=== PATIENT | female | born 1965 | race Caucasian/White ===

== ENCOUNTER 2020-06-12 00:18 | Inpatient (IN) | payer BC ==
[2020-06-12] MEDS ORDERED: HYDROmorphone 0.5 MG/0.5 ML SYRINGE IVP STA (00:42)
--- NOTE | 2020-06-12 01:28 | XR ---
EXAM: XR Right Hip With Pelvis When Performed, 2 or 3 Views CLINICAL HISTORY: ITS.REASON XR Reason: Fall/injury TECHNIQUE: Two or three views of the right hip with pelvis when performed. COMPARISON: No relevant prior studies available. FINDINGS: Bones/joints: Acute traumatic impacted subcapital fracture of the right femoral neck without significant displacement. An additional incomplete fracture line is identified extending through the medial cortex of the mid femoral neck. No joint dislocation. Sacroiliac joints, hip joints, and pubic symphysis are normally aligned. Soft tissues: Unremarkable. IMPRESSION: Acute impacted subcapital fracture of the right femoral neck. No dislocation.
--- NOTE | 2020-06-12 01:42 | ED ---
General Adult HPI - General Chief complaint: Fall Stated complaint: Fall Time Seen by Provider: 06/12/20 00:36 Source: EMS Mode of arrival: EMS Limitations: no limitations - History of Present Illness Initial comments: 54-year-old female patient presents to the emergency department today for evaluation of right hip pain after a fall. Patient states around 8:00 this evening she went to go upstairs and a carotid when she tripped and fell landing on the right side. Patient states she had significant discomfort to the right hip and was unable to bear weight or walk. Patient states the pain radiates down her leg to about mid thigh. She denies numbness or tingling in the toes or feet. She denies hitting her head or losing consciousness with the fall. Denies any other injuries. Denies previous injury to this hip. Patient denies any headache, neck pain, back pain, chest pain, shortness of breath, dizziness, weakness, abdominal pain, nausea, vomiting, or difficulties with bowel movements or urination. - Related Data Allergies Allergy/AdvReac Type Severity Reaction Status Date / Time No Known Allergies Allergy Verified 06/12/20 00:22 Review of Systems ROS Statement: Those systems with pertinent positive or pertinent negative responses have been documented in the HPI. ROS Other: All systems not noted in ROS Statement are negative. Past Medical History Past Medical History: No Reported History History of Any Multi-Drug Resistant Organisms: None Reported Past Surgical History: No Surgical Hx Reported Smoking Status: Current every day smoker Past Alcohol Use History: None Reported Past Drug Use History: None Reported General Exam Limitations: no limitations General appearance: alert, in no apparent distress, other (This is a well- developed, well-nourished adult female patient in no acute distress. Vital signs upon presentation are temperature 99.2F, pulse 84, respirations 17, blood pressure 128/81, pulse ox 96% on room air.) Head exam: Present: atraumatic, normocephalic, normal inspection Eye exam: Present: normal appearance, PERRL, EOMI. Absent: scleral icterus, conjunctival injection, periorbital swelling ENT exam: Present: normal exam, normal oropharynx, mucous membranes moist Neck exam: Present: normal inspection, full ROM, other (Nontender, no step-off, no deformity to firm midline palpation of the posterior cervical spine. Full range of motion without pain or limitation.). Absent: tenderness, meningismus, lymphadenopathy Respiratory exam: Present: normal lung sounds bilaterally. Absent: respiratory distress, wheezes, rales, rhonchi, stridor Cardiovascular Exam: Present: regular rate, normal rhythm, normal heart sounds. Absent: systolic murmur, diastolic murmur, rubs, gallop, clicks GI/Abdominal exam: Present: soft, normal bowel sounds. Absent: distended, tenderness, guarding, rebound, rigid Extremities exam: Present: normal inspection, full ROM, normal capillary refill, other (Skin to the right lower extremity is pink, warm, dry. Cap refills less than 3 seconds. Pedal and posttibial pulses are 2+ and equal bilaterally. There is no shortening or rotation of the right leg.). Absent: tenderness, pedal edema, joint swelling, calf tenderness Back exam: Present: normal inspection, other (Nontender, no step-off, no defo rmity to firm midline palpation of the thoracic and lumbar vertebrae. Full range of motion without pain or limitation.). Absent: vertebral tenderness Neurological exam: Present: alert, oriented X3, CN II-XII intact Psychiatric exam: Present: normal affect, normal mood Skin exam: Present: warm, dry, intact, normal color. Absent: rash Course Vital Signs 06/12/20 00:19 Temperature 99.2 F Pulse Rate 84 Respiratory 17 Rate Blood Pressure 128/81 O2 Sat by Pulse 96 Oximetry Medical Decision Making - Medical Decision Making 54 year-old female patient presented to the emergency department today for evaluation of right hip pain after experiencing a fall. Physical examination did reveal good neurovascular status to the right lower extremity. No shortening or rotation of the leg. X-ray was obtained and did show evidence for impacted subcapital fracture of the right femoral neck. No dislocation noted. Labs will be obtained. Patient will be admitted to orthopedics. - Lab Data Result diagrams: 06/12/20 02:00 Lab Results 06/12/20 Range/Units 02:00 WBC 12.0 H (3.8-10.6) k/uL RBC 4.13 (3.80-5.40) m/uL Hgb 13.5 (11.4-16.0) gm/dL Hct 39.7 (34.0-46.0) % MCV 96.1 (80.0-100.0) fL MCH 32.8 (25.0-35.0) pg MCHC 34.1 (31.0-37.0) g/dL RDW 12.4 (11.5-15.5) % Plt Count 285 (150-450) k/uL MPV 6.8 Neutrophils % 73 % Lymphocytes % 19 % Monocytes % 4 % Eosinophils % 2 % Basophils % 1 % Neutrophils # 8.8 H (1.3-7.7) k/uL Lymphocytes # 2.3 (1.0-4.8) k/uL Monocytes # 0.5 (0-1.0) k/uL Eosinophils # 0.2 (0-0.7) k/uL Basophils # 0.1 (0-0.2) k/uL - Radiology Data Radiology results: report reviewed, image reviewed X-rays of the right hip and pelvis were obtained. Report was reviewed in its entirety. Impression by Dr. Simms shows acute impacted subcapital fracture of the right femoral neck. No dislocation. Disposition Clinical Impression: Closed right hip fracture Disposition: ADMITTED IP TO THIS [facility] Condition: Serious Referrals: Ronaldo Ann MD [Primary Care Provider] - 1-2 days Decision to Admit Reason: Admit from EC Decision Date: 06/12/20 Decision Time: 02:37
[2020-06-12] MEDS ORDERED: HYDROmorphone 1 MG/ML 1 ML SYRINGE IVP STA (02:26)
[2020-06-12 02:27] LABS: Basophils # (A) 0.1 k/uL (0-0.2); Basophils % (A) 1 %; Eosinophils # (A) 0.2 k/uL (0-0.7); Eosinophils % (A) 2 %; HCT 39.7 % (34.0-46.0); HGB 13.5 gm/dL (11.4-16.0); Lymphocytes # (A) 2.3 k/uL (1.0-4.8); Lymphocytes % (A) 19 %; MCH 32.8 pg (25.0-35.0); MCHC 34.1 g/dL (31.0-37.0); MCV 96.1 fL (80.0-100.0); Mean Platelet Volume 6.8; Monocytes # (A) 0.5 k/uL (0-1.0); Monocytes % (A) 4 %; Neutrophils # (A) 8.8 k/uL (1.3-7.7); Neutrophils % (A) 73 %; Platelet Count 285 k/uL (150-450); RBC 4.13 m/uL (3.80-5.40); RDW 12.4 % (11.5-15.5)
[2020-06-12 02:35] LABS: INR 0.9 (<1.2); Partial Thromboplastin Time 25.1 sec (22.0-30.0); Prothrombin Time 9.6 sec (9.0-12.0)
[2020-06-12] MEDS ORDERED: NALOXONE 0.4 MG/ML 1 ML VIAL IV PRN (02:36)
[2020-06-12] MEDS ORDERED: ONDANSETRON 4 MG/2 ML VIAL IVP PRN ×2 (02:36→12:23)
[2020-06-12 02:42] LABS: Albumin 4.5 g/dL (3.5-5.0); Calcium 9.1 mg/dL (8.4-10.2); Potassium 4.2 mmol/L (3.5-5.1); Total Bilirubin 0.4 mg/dL (0.2-1.3); Total Protein 7.3 g/dL (6.3-8.2)
[2020-06-12] MEDS: SODIUM CHLORIDE 0.9% 1,000 ML IV SCH (03:08)
[2020-06-12] MEDS: HYDROmorphone 1 MG/ML 1 ML SYRINGE IVP PRN ×4 (04:58→22:59)
--- NOTE | 2020-06-12 08:52 | P.HPOR ---
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 She was unable to bear weight after the injury. She denies previous problems. She had no loss of consciousness. Review of Systems Unremarkable Past Medical History Past Medical History: No Reported History History of Any Multi-Drug Resistant Organisms: None Reported Past Surgical History: Tubal Ligation Smoking Status: Current some day smoker (1/2-1 pack per day) Past Alcohol Use History: None Reported Past Drug Use History: None Reported Medications and Allergies Allergies Allergy/AdvReac Type Severity Reaction Status Date / Time No Known Allergies Allergy Verified 06/12/20 00:22 Physical Examination - Hip right Gait: other (Nonweightbearing) Tenderness with palpation: anterior Pain with motion: other (Pain with logroll/any motion right hip) ROM: extension: 0 degrees ROM: flexion: 30 degrees ROM: abduction: 10 degrees ROM: adduction: 10 degrees ROM: internal rotation: 0 degrees ROM: external rotation: 30 degrees Results Alert and oriented 4 Nontender cervicothoracic and lumbar spine Pelvis stable to external rotation stress Nontender bilateral upper extremities Limited range of motion right hip secondary to pain No pain with logroll left hip Nontender bilateral knees and ankles and feet Distal neurovascular intact bilateral lower extremities Mild shortening right lower extremity - Labs Labs: Abnormal Lab Results - Last 24 Hours (Table) 06/12/20 06/12/20 Range/Units 02:00 02:00 WBC 12.0 H (3.8-10.6) k/uL Neutrophils # 8.8 H (1.3-7.7) k/uL Chloride 109 H (98-107) mmol/L H & H 06/12/20 Range/Units 02:00 Hgb 13.5 (11.4-16.0) gm/dL Hct 39.7 (34.0-46.0) % Coagulation 06/12/20 Range/Units 01:58 INR 0.9 (<1.2) Result Diagrams: 06/12/20 02:00 06/12/20 02:00 - Diagnostic results Hip x-ray: image reviewed (Valgus impacted right subcapital femoral neck fracture) Assessment and Plan Assessment: Acute right subcapital femoral neck fracture History of tobacco use Plan: I talked to the patient length regarding her condition along with treatment options. She opted to proceed with surgery. Operative options to include open reduction and pinning versus total hip arthroplasty were discussed. She opted to proceed with total hip arthroplasty. Risks and benefits were discussed at length in layman's terms. Time with Patient: Greater than 30
[2020-06-12] MEDS ORDERED: PROPOFOL 10 MG/ML 20 ML VIAL IV ONE (10:34)
[2020-06-12] MEDS ORDERED: LIDOCAINE 1% INJ 10MG/ML (20 ML MDV) ONE (10:34)
[2020-06-12] MEDS ORDERED: ONDANSETRON 4 MG/2 ML VIAL ONE (10:34)
[2020-06-12] MEDS ORDERED: DEXAMETHASONE SOD PHOSPHATE 10 MG/ML 1 ML VIAL ONE (10:34)
[2020-06-12] MEDS ORDERED: SUCCINYLCHOLINE CHLORIDE 100 MG/5 ML SYR IV ONE (10:34)
[2020-06-12] MEDS ORDERED: MIDAZOLAM 2 MG/2 ML VIAL ONE (10:34)
[2020-06-12] MEDS ORDERED: fentaNYL (PF) 50 MCG/ML 2 ML AMP ONE (10:34)
[2020-06-12] MEDS ORDERED: KETAMINE 10 MG/ML 20 ML VIAL ONE (10:34)
[2020-06-12] MEDS ORDERED: SODIUM CHLORIDE 0.9% 1,000 ML IV ONE (10:34)
[2020-06-12] MEDS ORDERED: SODIUM CHLORIDE 0.9% 50 ML with ceFAZolin 1,000 MG IV ONE ×2 (10:45)
[2020-06-12] MEDS ORDERED: ceFAZolin 3,000 MG in SODIUM CHLORIDE 0.9% IRRIGATIO 3,000 ML IRRIGATION ONE (11:02)
[2020-06-12] MEDS ORDERED: LACTATED RINGERS 1,000 ML IV ONE ×2 (12:02)
[2020-06-12] MEDS ORDERED: ACETAMINOPHEN TAB 325 MG TAB PO PRN (12:23)
[2020-06-12] MEDS ORDERED: MAGNESIUM HYDROXIDE 2,400 MG/10 ML CUP PO PRN (12:23)
[2020-06-12] MEDS ORDERED: traMADol 50 MG TAB PO PRN (12:23)
[2020-06-12] MEDS ORDERED: HYDROcodone/APAP 7.5-325MG 1 EACH TAB PO PRN (12:23)
--- NOTE | 2020-06-12 12:50 | P.OP ---
Date of Procedure: 06/12/20 Preoperative Diagnosis: Impacted right subcapital femoral neck fracture Postoperative Diagnosis: Same Procedure(s) Performed: Right total hip arthroplastypress-fitlateral approach Implants: Depuy Corail size 11 collared standard femoral stempress-fit, 32+5 cobalt chrome femoral head, 52 mm Corona acetabular shell with neutral polyethylene liner. Anesthesia: GETA, spinal Surgeon: Neri Sanchez [employer] Coordinator #1: Milton Shore Estimated Blood Loss (ml): 100 Pathology: other (Femoral head) Condition: stable Disposition: PACU Indications for Procedure: The patient's a 54-year-old female who presents after falling in her garage yesterday sustaining an impacted right subcapital femoral neck fracture. A discussion of the risks and benefits of operative intervention was made with patient. She opted to proceed with surgery. Operative options were discussed to include open reduction with pinning versus hemiarthroplasty versus total hip arthroplasty. She opted to proceed with total hip arthroplasty. Specific risks of the surgery to include infection, neurovascular injury, development of blood clots, possible fracture, possible leg length discrepancy, possible instability and need for subsequent procedures was discussed. Informed consent was obtained. Operative Findings: As below Description of Procedure: The patient was brought to the operating room, and after induction of spinal anesthesia was placed in a lateral decubitus position. The bony prominences were appropriately padded. The pelvis was stable perpendicular to the floor with a pegboard. The right lower extremity was prepped and draped in normal fashion. A 12 cm incision was then made centered over the greater trochanter extending superiorly to level the ASIS and distally in line with the femoral shaft. The skin and subcutaneous tissues were divided sharply. Electrocautery was used for hemostasis. The fascia ramona and gluteus tati fascia was split in line with the skin incision. The muscle fibers were bluntly dissected proximally. A self-retaining retractor was placed. The anterior and posterior margins of the gluteus medius muscles identified and the anterior two thirds was detached from the greater trochanter with electrocautery. The gluteus minimus tendon was identified and detached in a similar fashion. A wide capsulotomy was performed. The femoral neck fracture was identified in the lower neck cut was made approximately 1 1/2 cm above the level of the lesser trochanter with a sagittal saw at a 45 the shaft. The head was then extracted with a corkscrew. Attention was then paid towards preparing the acetabular. Anterior and posterior retractors were placed. The remaining capsular labral tissues debrided sharply clearly defining the acetabular margins. Began reaming with a 45 mm reamer taking care to initially medialize, then reaming at 45 of abduction and 20 of anteversion. Sequential reaming is performed up to 51 mm. This was down to bleeding bony surface. A trial 52 mm acetabular shell was inserted at 45 of abduction and 20 of anteversion. This was fully seated. There was good rim fit and stability. A neutral polyethylene liner was then impacted. Care taken to avoid any soft tissue interposition. Attention was then paid towards preparing the proximal femur. A box chisel was used to open the metaphyseal region. A canal finder was used to find the femoral canal. Sequential broaching was performed up to a size 11. This is placed in 15 of anteversion with the leg perpendicular floor judging off the trans-epicondylar axis. There is good rotational stability. A calcar mill was used to fashion the medial calcar. A trial standard neck along with a 32 mm + 5 trial head was placed. The hip was gently reduced. It was taken through range of motion. I felt to be stable in flexion and extension with internal and external rotation. I felt there was adequate methodist of soft tissue tension. The hip was gently dislocated. The trial components removed. Pulsatile lavage was utilized. The final size 11 standard collared femoral stem was inserted again with the leg perpendicular to the floor in 15 of anteversion. Again there was good rotational stability. A 32 mm + 5 cobalt chrome femoral head was gently impacted. The hip was gently reduced. Again it was taken through motion and felt to be stable in flexion and extension with internal and external rotation. Pulsatile lavage was again utilized. With the leg in abduction the gluteus minimus and medius tendons reattached to the greater trochanter with #2 Ethibond suture. There was minimal drainage therefore a deep drain was not placed. The fascia ramona and gluteus tati fascia was closed with #2 Ethibond suture. The subcutaneous tissues were reapproximated interrupted 2-0 Vicryl sutures. The skin was reapproximated with 3-0 subcuticular strata fix suture. Skin tape and adhesive was applied. A sterile dressing was applied. The patient was awoken from sedation and transferred to recovery room in good condition. Blood loss was estimated 100 mL. No complications were incurred. Sponge and needle counts were correct in the case. Héctor WOOD assisted during the major composes case to include exposure, implantation, and closure.
--- NOTE | 2020-06-12 13:03 | XR ---
EXAMINATION TYPE: XR Hip Limited RT DATE OF EXAM: 06/12/2020 CLINICAL HISTORY: Postoperative evaluation TECHNIQUE: Single portable view of the right hip was submitted. FINDINGS: Noted are changes of total hip arthroplasty with femoral and acetabular components appearin g well seated. Alignment is anatomic. Postsurgical soft tissue changes are evident. IMPRESSION: Satisfactory postoperative alignment
[2020-06-12] MEDS ORDERED: SENNOSIDES-DOCUSATE SODIUM 1 EACH TAB PO SCH (21:00)
[2020-06-13] MEDS: SODIUM CHLORIDE 0.9% 1,000 ML IV SCH (02:36)
[2020-06-13] MEDS: HYDROmorphone 1 MG/ML 1 ML SYRINGE IVP PRN ×3 (02:37→10:28)
[2020-06-13 06:22] LABS: Basophils % (A) 1 %; Eosinophils % (A) 0 %; HCT 34.3 % (34.0-46.0); HGB 11.7 gm/dL (11.4-16.0); Lymphocytes # (A) 1.5 k/uL (1.0-4.8); Lymphocytes % (A) 20 %; MCH 33.6 pg (25.0-35.0); MCHC 34.2 g/dL (31.0-37.0); MCV 98.1 fL (80.0-100.0); Mean Platelet Volume 7.3; Monocytes # (A) 0.5 k/uL (0-1.0); Monocytes % (A) 6 %; Neutrophils # (A) 5.3 k/uL (1.3-7.7); Neutrophils % (A) 70 %; Platelet Count 256 k/uL (150-450); RDW 12.3 % (11.5-15.5); WBC 7.5 k/uL (3.8-10.6)
[2020-06-13] MEDS ORDERED: ENOXAPARIN 40 MG/0.4 ML SYRINGE SQ SCH (09:00)
[2020-06-13] MEDS ORDERED: FAMOTIDINE 20 MG TAB PO SCH (09:00)
[2020-06-13 11:53] VITALS: BP 126/73; RESP 16; TEMP 98.3
--- NOTE | 2020-06-13 12:24 | P.PN ---
Subjective Progress Note Date: 06/13/20 Principal diagnosis: Status post right total hip arthroplasty Patient is evaluated today at bedside, she is resting comfortably. She's ambulating well with therapy, she is utilizing a walker. Her pain is well- controlled. She denies any headaches, lightheadedness, chest pain, shortness of breath, nausea or vomiting, fever or chills. Objective - Vital Signs Vital signs: Vital Signs Temp 98.3 F 06/13/20 11:10 Pulse 90 06/13/20 11:10 Resp 16 06/13/20 11:10 BP 126/73 06/13/20 11:10 Pulse Ox 98 06/13/20 11:10 Intake & Output 06/12/20 06/13/20 06/13/20 18:59 06:59 18:59 Intake Total 801 Output Total 100 Balance 701 Intake: IV 801 Output: Estimated Blood Loss 100 Other: Voiding Method Bedpan Toilet # Voids 3 2 - Exam Right lower extremity: Incision is clean, dry, and intact. The exofin fusion tape is in good condition. There is minimal soft tissue swelling and ecchymosis surrounding the medial and lateral aspects of the incision. Calf is soft, no tenderness with palpation. Plantar flexion, dorsiflexion, EHL, FHL are intact. Sensory exam to light touch throughout the extremity is intact, dorsal pedis pulses 2+. - Labs CBC & Chem 7: 06/13/20 05:39 06/12/20 02:00 Labs: Abnormal Lab Results - Last 24 Hours (Table) 06/13/20 Range/Units 05:39 RBC 3.50 L (3.80-5.40) m/uL Assessment and Plan Assessment: Status post right total hip arthroplasty Plan: Pain control, plan for discharge home on oral Esmond 7.5 mg/325 mg . DVT prophylaxis aspirin 81 mg twice a day at discharge, plan to use for 1 month Wound care instructions were discussed, icing and elevating techniques discussed Home health care after discharge Patient stable for discharge, plan for follow-up in 2 weeks Time with Patient: Less than 30
--- NOTE | 2020-06-13 12:29 | P.DS ---
Providers Date of admission: 06/12/20 02:43 Expected date of discharge: 06/13/20 Attending physician: Neri Sanchez Primary care physician: [facility] Hospital Course: Date of admission: 06/12/2020 Date of discharge: 06/13/2020 Admission diagnosis: Displaced right femoral neck fracture Discharge diagnosis: Status post right total hip arthroplasty Attending physician: Dr. Sanchez Surgical procedures: Right total hip arthroplasty Brief history: Patient is a 54-year-old female who was brought to [facility] on 06/12/2020 after sustaining an injury to her right hip. Patient was in her garage, she apparently tripped over the step and fell onto that side. She was unable to weight-bear, EMS to bring the patient to the hospital. Upon arrival to the hospital, imaging and lab tests were done, they demonstrated a right femoral neck fracture. Our orthopedic team was contacted, she was admitted under our care with plan for likely surgical intervention. She was scheduled for surgery on 06/13/[address] Sanchez. Hospital course: Details of patient's surgery can be found in operative report. Patient tolerated the procedure well and was subsequently transported to orthopedic floor. Patient's orthopeidc and medical care was provided daily. Patient had daily laboratory tests performed for evaluation of overall blood counts. Patient had daily physical therapy to include strengthening range of motion as well as education with walker ambulation. Patient was treated with Lovenox for their postoperative DVT prophylaxis during their inpatient stay. Patient was noted to have a relatively uneventful postoperative course. Patient reported satisfactory pain control with oral pain medications by postoperative day 0. Patient showed satisfactory progress with physical therapy. Patient moved steadily through the program and had no difficulty meeting the goals by postoperative day 1. Given patient's otherwise satisfactory course and having met physical therapy goals, plan is to discharge patient home on postoperative day 1. Discharge condition/disposition: Patient will be discharged home in stable condition. Discharge medications: Instructions are given on resumption of patient's normal daily medications per primary care recommendation, in addition patient will be prescribed [place] 7.5 mg/325 mg, Colace 100 mg, aspirin 81 mg. Discharge instructions: 1. Wound care and infection precautions, keep incision dry and covered while showering, no lotions, creams, moisturizers. No soaking, tubs, pools, hottubs. Do not scrub over the incision. 2. Weight-bear as tolerated with walker / cane until follow-up. 3. Ice and elevate when necessary. Do not exceed 20 minutes per hour with ice pack. 4. Utilize compression sleeve until seen at first follow up appointment. 5. Visiting nursing care. 6. Home physical therapy. 7. Pain meds and anticoagulants per prescription. 8. Pain medication has potential to cause constipation. Increase oral fluid and fiber intake. Contact primary care provider if you have not had a bowel movement within 48 hours after discharge 9. No anti-inflammatory medication until discussed at first post operative visit, this including Motrin, Aleve, Mobic, Diclofenac. 10. Follow up in office at 2 weeks postop with Héctor Shore PA-C 11. Follow up with your primary care doctor 7-10 days after discharge. 12. Contact [facility] with any questions, . Procedures: Total right hip arthroplasty Patient Condition at Discharge: Good Plan - Discharge Summary Discharge Rx Participant: No New Discharge Prescriptions: New Aspirin [Adult Low Dose Aspirin EC] 81 mg PO BID #60 tablet. Docbethte [Colace] 100 mg PO DAILY #30 capsule HYDROcodone/APAP 7.5-325MG [[place] 7.5] 1 - 2 each PO Q6HR PRN #42 tab PRN Reason: Pain No Action Ibuprofen [Advil] 400 mg PO Q8HR PRN PRN Reason: Pain Or Fever > 100.5 Vitamin C/Biotin [Hair, Skin and Nails] 1 tab PO DAILY Discharge Medication List Ibuprofen [Advil] 400 mg PO Q8HR PRN 06/12/20 [History] Vitamin C/Biotin [Hair, Skin and Nails] 1 tab PO DAILY 06/12/20 [History] Aspirin [Adult Low Dose Aspirin EC] 81 mg PO BID #60 tablet. 06/13/20 [Rx] Docusate [Colace] 100 mg PO DAILY #30 capsule 06/13/20 [Rx] HYDROcodone/APAP 7.5-325MG [[place] 7.5] 1 - 2 each PO Q6HR PRN #42 tab 06/13/20 [Rx] Follow up Appointment(s)/Referral(s): Milton Shore PAC [PHYSICIAN [employer]ER] - 2 Weeks Activity/Diet/Wound Care/Special Instructions: Orthopedic Discharge Instructions: 1. Wound care and infection precautions, keep incision dry and covered while showering, no lotions, creams, moisturizers. No soaking, pools, hot tubs. Do not scrub over incision. 2. Weight-bear as tolerated with walker / cane until follow-up. 3. Ice and elevate when necessary. Do not exceed 20 minutes per hour with ice pack. 4. Utilize compression sleeve until seen at first follow up appointment. 5. Pain meds and anticoagulants per prescription. 6. Pain medication has potential to cause constipation. Increase oral fluid and fiber intake. Contact primary care provider if you have not had a bowel movement within 48 hours after discharge. 7. No anti-inflammatory medication until discussed at first post operative visit, this including Motrin, Aleve, Mobic, Diclofenac. 8. Follow up in office at 2 weeks postop with Héctor Shore PA-C 9. Follow up with your primary care doctor 7-10 days after discharge. 10. Contact [facility] with any questions, . Discharge Disposition: HOME WITH HOME HEALTH SERVICES
[2020-06-13 12:35] VITALS: PULSE 67
== END 2020-06-13 14:00 | disposition home health service (06) | DRG 522 ==
LOC: EC 00:18 → 5NMEDONC 02:43
PROVIDERS: ADMIT Orthopaedic Surgery; ATTEND Orthopaedic Surgery
PROC: 0SR902A Replacement of Right Hip Joint with Metal on Polyethylene Synthetic Substitute, Uncemented, Open Approach (ICD-10-PCS; principal; 2020-06-13)
DX: S72.011A Unspecified intracapsular fracture of right femur, initial encounter for closed fracture (principal); F17.210 Nicotine dependence, cigarettes, uncomplicated; W01.0XXA Fall on same level from slipping, tripping and stumbling without subsequent striking against object, initial encounter; Y92.015 Private garage of single-family (private) house as the place of occurrence of the external cause; Z98.51 Tubal ligation status
CPT/HCPCS: 36415; 73501; 73502; 80053; 85025; 85610; 85730; 86850; 86900; 86901; 88305; 88311; 96374; 96376; 99285